=== PATIENT | male | born 2005 | race Caucasian/White ===

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

== ENCOUNTER 2024-02-20 12:49 | Emergency (ER) | payer OTHER ==
[~2024-02-20] VITALS: Ht 175.3 cm; Wt 75.0 kg
[2024-02-20] MEDS ORDERED: DAPTOmycin 500 MG/10 ML VIAL IV ONE (13:15)
[2024-02-20] MEDS ORDERED: CEFTRIAXONE/SODIUM CHLORIDE 2 GM/100 ML PIGGYBACK IV ONE (13:15)
[2024-02-20] MEDS ORDERED: KETOROLAC TROMETHAMINE 30 MG/ML VIAL IV ONE (13:15)
[2024-02-20] MEDS ORDERED: SODIUM CHLORIDE 0.9% 1,000 ML IV PRN (13:15)
[2024-02-20] MEDS ORDERED: ACETAMINOPHEN 500 MG TAB PO ONE (13:15)
[2024-02-20 13:23] LABS: HEMATOCRIT 50.6 % (35.0-50.0); HEMOGLOBIN 17.8 g/dL (12.0-18.0); MCH 32.7 (27-36); MCHC 35.2 g/dl (30-36); MCV 92.9 fl (81-99); PLATELET COUNT 162 K/uL (140-440); RBC 5.45 M/ul (4.3-5.7); RDW 12.9 (10.5-15.0)
[2024-02-20 13:26] LABS: INR 1.1 (0.80-1.30); PROTIME 13.8 Sec (11.2-14.2)
[2024-02-20 13:28] LABS: PARTIAL THROMBOPLASTIN TIME 26.4 Sec (22.9-41.3)
[2024-02-20 13:31] LABS: ALBUMIN/GLOBULIN RATIO 1.03 (1.1-2.4); ANION GAP 13.7 (7-21); BILIRUBIN, TOTAL 1.1 ng/dL (0.2-1.0); BUN/CREATININE RATIO 9.4 (6.0-28.6); CALCIUM 9.3 mg/dL (8.5-10.1); CREATININE, SERUM 1.17 mg/dL (0.70-1.30); POTASSIUM 3.7 mmol/L (3.5-5.1); PROTEIN, TOTAL 7.9 g/dL (6.4-8.2)
[2024-02-20 13:48] LABS: BANDS, MANUAL DIFF 2; LYMPHOCYTES, MANUAL DIFF 5; MONOCYTES, MANUAL DIFF 23; NEUTROPHILS, MANUAL DIFF 70
[2024-02-20] MEDS ORDERED: methylPREDNISolone SOD SUCC 125 MG/2 ML VIAL IV ONE (14:00)
[2024-02-20] MEDS ORDERED: diphenhydrAMINE HCL 50 MG/ML VIAL IV ONE (14:00)
[2024-02-20 14:34] LABS: INFLUENZA B NAA NEGATIVE (NEGATIVE); RESPIRATORY SYNCYTIAL VIR NAA NEGATIVE (NEGATIVE)
[2024-02-20 14:39] LABS: BILIRUBIN, URINE NEGATIVE (negative); BLOOD/HGB, URINE NEGATIVE (Negative); KETONE, URINE TRACE (Negative); LEUK ESTERASE, URINE NEGATIVE (negative); NITRITE, URINE NEGATIVE (negative); PH, URINE 5.5 (5-7)
[2024-02-20 15:29] VITALS: BP 116/65
[2024-02-20] MEDS ORDERED: CLINDAMYCIN HC150 MG PO (15:37)
[2024-02-20] MEDS ORDERED: AMOX TR-K CLV1 EAC1 PO (15:37)
--- NOTE | 2024-02-23 21:31 | EKG ---
[facility] [address] [facility] [place] [address] Signed Normal sinus rhythm Rightward axis Borderline ECG No previous ECGs available Confirmed by Roberto Brown MD ([id number]) on 02/23/2024 9:30:59 PM Electronically Signed By: ROBERTO BROWN DO [id number] PATIENT NAME: PAULAEMIGDIOLUANN GAVIRIA Electrocardiogram DATE OF : [birth year] PHYSICIAN: ROBERTO BROWN DO REPORT #: [id number] REPORT IS CONFIDENTIAL AND NOT TO BE RELEASED WITHOUT AUTHORIZATION
== END 2024-02-20 15:45 | disposition home or self-care (01) ==
LOC: ED 12:49
PROVIDERS: Emergency Medicine
DX: L03.213 Periorbital cellulitis (principal); U07.1 COVID-19
CPT/HCPCS: 36415; 70487; 71045; 80053; 81003; 83605; 85025; 85610; 85730; 87040; 87502; 87651; 93005; 93010; 96375; 99284-25; A9270; J0696; J0878; J1200; J1885; J2919; J7030; Q9967; U0002